=== PATIENT | male | born 1935 | race Caucasian/White ===

== ENCOUNTER 2016-07-05 09:30 | Emergency (ER) | payer OTHER ==
[2016-07-05] MEDS ORDERED: Silver Nitrate Applicator Each TOP ONE (10:05)
[2016-07-05 10:14] VITALS: BP 142/76
--- NOTE | 2016-07-05 10:15 | EDM.PDOC ---
ED HPI ENT - General Stated Complaint: BLOODY NOSE Time Seen by Provider: 07/05/16 10:00 Source of Information: Reports: Patient History Limitations: Reports: No limitations - History of Present Illness INITIAL COMMENTS - FREE TEXT/NARRATIVE: STarted bleeding from the left nostril about midnight. He could get it to stop for awhile and then it would start again. Puts pressure on it. Has had this happen in the past where it happened and he stopped his baby ASA and it went away. No trauma to the area. Not having any pain at this time. Symptom Onset Date: 07/05/16 Symptom Onset Time: 00:00 Timing/Duration: Reports: Intermittent Location: Reports: left nares Worsens with: Reports: Movement Associated Symptoms: Denies: headaches - Related Data Allergies/ADRs: Allergies Allergy/AdvReac Type Severity Reaction Status Date / Time No Known Allergies Allergy Verified 07/05/16 09:48 Home Meds: Home Meds Isosorbide Mononitrate [Imdur] 30 mg PO DAILY 06/06/13 [History] Latanoprost [Xalatan 0.005% Ophth Soln] 2.5 ml OP DAILY 06/06/13 [History] Lisinopril 10 mg PO DAILY 06/06/13 [History] Metoprolol Tartrate 25 mg PO BID 06/06/13 [History] Nitroglycerin 0.4 mg SL DAILY PRN 06/06/13 [History] Omeprazole 20 mg PO BID 06/06/13 [History] Rosuvastatin [Crestor] 20 mg PO BEDTIME 06/06/13 [History] Tamsulosin [Flomax] 0.4 mg PO BEDTIME 06/06/13 [History] Acetaminophen [Tylenol] 325 mg PO DAILY PRN 10/23/14 [History] Alfuzosin HCl [Alfuzosin HCl ER] 10 mg PO DAILY 10/23/14 [History] Clopidogrel [Plavix] 75 mg PO DAILY 10/23/14 [History] Oxybutynin 5 mg PO DAILY 10/23/14 [History] Sennosides/Docusate Sodium [Stool Softener] 1 tab PO DAILY PRN 10/23/14 [History ] traMADol HCl [Tramadol HCl] 50 mg PO Q6H PRN 10/23/14 [History] Past Medical History Cardiovascular History: Reports: High cholesterol, Hypertension Respiratory History: Reports: None Gastrointestinal History: Reports: GERD Genitourinary History: Reports: BPH Musculoskeletal History: Reports: Osteoarthritis Neurological History: Reports: CVA Endocrine/Metabolic History: Reports: Other (see below) Other Endocrine/Metabolic History: glucose intolerance Social & Family History - Tobacco Use Smoking Status *Q: Never Smoker Years of Tobacco use: 39 Used Tobacco, but Quit: Yes Month Tobacco Last Used: unsure Second Hand Smoke Exposure: No - Alcohol Use Days Per Week of Alcohol Use: 0 - Recreational Drug Use Recreational Drug Use: No - Living Situation & Occupation Living situation: Reports: Occupation: retired ED ROS ENT - Review of Systems Review Of Systems: See Below Constitutional: Denies: fever, chills HEENT: Reports: Nosebleed. Denies: Nose pain Respiratory: Denies: Shortness of Breath, Cough Cardiovascular: Denies: Chest pain GI/Abdominal: Reports: No symptoms Skin: Reports: no symptoms Neurological: Reports: No Symptoms Hematologic/Lymphatic: Denies: easy bleeding, easy bruising ED EXAM, ENT - Physical Exam Exam: See Below Exam Limited By: No limitations General Appearance: alert, WD/WN, no apparent distress Ears: normal external exam, normal TMs Nose: active bleeding (to the left septum noted.). No: nasal deformity, foreign body Mouth/Throat: Normal inspection, Normal oropharynx Head: atraumatic, normocephalic Neck: normal inspection, supple, non-tender Respiratory/Chest: no respiratory distress, lungs clear Cardiovascular: normal peripheral pulses, regular rate, rhythm GI/Abdominal: normal bowel sounds, soft Neurological: alert Skin: Warm, Dry, Intact ED ENT PROCEDURES - Epistaxis Procedure Indication: epistaxis, uncontrolled Recent anticoagulants/antiplatlets: Yes Uncontrolled HTN: No Recent septal/nasal surgery: No Site of bleeding: left nare Chemical cautery: silver nitrate topical Complications: No Course - Vital Signs Last Recorded V/S: Last Vital Signs Temp 98.0 F 07/05/16 09:40 Pulse 65 07/05/16 09:40 Resp 20 07/05/16 09:40 BP Pulse Ox 95 07/05/16 09:40 - Orders/Labs/Meds Orders: Active Orders 24 hr Category Date Time Status BMP [BASIC METABOLIC PANEL,BMP] [CHEM] Stat Lab 07/05/16 09:51 Ordered Labs: Laboratory Tests 07/05/16 Range/Units 09:51 WBC 6.2 (5.0-10.0) 10^3/uL RBC 4.13 L (4.50-6.00) 10^6/uL Hgb 12.9 L (14.0-18.0) g/dL Hct 38.2 L (40.0-54.0) % MCV 92.5 (82.0-94.0) fL MCH 31.2 (27.0-32.0) pg MCHC 33.8 (33.0-38.0) g/dL RDW Coeff of Erica 13.1 (11.0-15.0) % Plt Count 196 (150-400) 10^3/uL Neut % (Auto) 64.6 (35-85) % Lymph % (Auto) 22.8 (10-55) % Tucker % (Auto) 10.6 (0-16) % Eos % (Auto) 1.8 (0-5) % Baso % (Auto) 0.2 (0-3) % Neut # (Auto) 4.04 (1.80-7.00) 10^3/uL Lymph # (Auto) 1.42 (1.00-4.80) 10^3/uL Tucker # (Auto) 0.66 (0.00-0.80) 10^3/uL Eos # (Auto) 0.11 (0.00-0.45) 10^3/uL Baso # (Auto) 0.01 10^3/uL Departure - Departure Time of Disposition: 10:26 Disposition: Home, Self-Care 01 Condition: good Clinical Impression: Epistaxis Additional Instructions: Do not blow nose or rub on it Try to avoid bending or lifting for the next 24 hours Recheck if any new concerns noted. - Problem List & Annotations (1) Epistaxis SNOMED Code(s): 54286146, 428026325 Code(s): R04.0 - EPISTAXIS Status: Acute Priority: High - Problem List Review Problem List Initiated/Reviewed/Updated: Yes - My Orders Last 24 Hours: My Active Orders 07/05/16 09:51 BMP [BASIC METABOLIC PANEL,BMP] [CHEM] Stat - Assessment/Plan Last 24 Hours: My Active Orders 07/05/16 09:51 BMP [BASIC METABOLIC PANEL,BMP] [CHEM] Stat
== END 2016-07-05 10:35 | disposition home or self-care (01) ==
LOC: CC.ED 09:30
DX: R04.0 Epistaxis (principal); E78.00 Pure hypercholesterolemia, unspecified; I10 Essential (primary) hypertension; K21.9 Gastro-esophageal reflux disease without esophagitis; M19.90 Unspecified osteoarthritis, unspecified site; Z86.73 Personal history of transient ischemic attack (TIA), and cerebral infarction without residual deficits; Z79.899 Other long term (current) drug therapy
CPT/HCPCS: 30901; 36415; 80048; 85025; 99282; 99283

== ENCOUNTER 2016-07-16 08:26 | Emergency (ER) | payer OTHER ==
[2016-07-16 08:37] VITALS: BP 159/86
--- NOTE | 2016-07-16 09:01 | EDM.PDOC ---
ED HPI GENERAL MEDICAL PROBLEM - General Chief Complaint: General Stated Complaint: bloody nose yesterday Time Seen by Provider: 07/16/16 08:45 Source of Information: Reports: Patient History Limitations: Reports: No limitations - History of Present Illness INITIAL COMMENTS - FREE TEXT/NARRATIVE: Yariel is an 81 yo male who presents to the ER to have his nose cauterized. States he had a nose bleed yesterday and it did stop after a couple of minutes. He admits he came to the ER a few weeks ago and had it cauterized during an active nose bleed. Was doing fine up until yesterday. Hasn't had any nose bleeds since getting it to stop this morning. He denies any other symptoms. He isn't sure what is causing it but admits he does have high blood pressure. States he thought it was well controlled with the medication. [facility]. Duration: Resolved prior to arrival - Related Data Allergies Allergy/AdvReac Type Severity Reaction Status Date / Time No Known Allergies Allergy Verified 07/05/16 09:48 Home Meds: Home Meds Isosorbide Mononitrate [Imdur] 60 mg PO DAILY 06/06/13 [History] Latanoprost [Xalatan 0.005% Ophth Soln] 2.5 ml OP DAILY 06/06/13 [History] Lisinopril 2.5 mg PO DAILY 06/06/13 [History] Metoprolol Tartrate 25 mg PO BID 06/06/13 [History] Nitroglycerin 0.4 mg SL DAILY PRN 06/06/13 [History] Omeprazole 20 mg PO BID 06/06/13 [History] Rosuvastatin [Crestor] 20 mg PO BEDTIME 06/06/13 [History] Acetaminophen [Tylenol] 325 mg PO DAILY PRN 10/23/14 [History] Alfuzosin HCl [Alfuzosin HCl ER] 10 mg PO DAILY 10/23/14 [History] Clopidogrel [Plavix] 75 mg PO DAILY 10/23/14 [History] Sennosides/Docusate Sodium [Stool Softener] 1 tab PO DAILY PRN 10/23/14 [History ] traMADol HCl [Tramadol HCl] 50 mg PO Q6H PRN 10/23/14 [History] Meloxicam 15 mg PO DAILY 07/05/16 [History] Sodium Chloride [Saline Nasal [place]] 2 spray NS TID PRN 07/05/16 [History] Past Medical History HEENT History: Reports: Impaired vision Cardiovascular History: Reports: High cholesterol, Hypertension Respiratory History: Reports: None Gastrointestinal History: Reports: GERD Genitourinary History: Reports: BPH Musculoskeletal History: Reports: Osteoarthritis Neurological History: Reports: CVA Endocrine/Metabolic History: Reports: Other (see below) Other Endocrine/Metabolic History: glucose intolerance Social & Family History - Tobacco Use Smoking Status *Q: Never Smoker Years of Tobacco use: 39 Used Tobacco, but Quit: Yes Month Tobacco Last Used: unsure Second Hand Smoke Exposure: No - Caffeine Use Caffeine Use: Reports: Coffee - Alcohol Use Days Per Week of Alcohol Use: 0 - Recreational Drug Use Recreational Drug Use: No - Living Situation & Occupation Living situation: Reports: Occupation: retired ED ROS GENERAL - Review of Systems Review Of Systems: See Below Constitutional: Denies: fever, chills HEENT: Reports: Nosebleed (resolved yesterday). Denies: Eye pain, Nose pain, Vision change Respiratory: Reports: No Symptoms. Denies: Shortness of Breath, Cough Cardiovascular: Reports: No symptoms. Denies: Chest pain, Blood pressure problem, Palpitations GI/Abdominal: Reports: No symptoms ED EXAM, GENERAL - Physical Exam Exam: See Below Exam Limited By: No limitations (sitting comfortably in chair, having normal conversation) General Appearance: alert, no apparent distress Ears: normal external exam, normal canal, hearing grossly normal, normal TMs Nose: no blood, other (mild excoriation to left kiesselbach's plexus). No: nasal tenderness, nasal deformity, nasal swelling Throat/Mouth: Normal inspection, Normal lips, Normal teeth, Normal gums, Normal oropharynx, No airway compromise Head: atraumatic, normocephalic Neck: normal inspection, supple Respiratory/Chest: no respiratory distress, lungs clear, normal breath sounds Cardiovascular: regular rate, rhythm, no murmur Neurological: alert, oriented, normal cognition, no motor/sensory deficits Psychiatric: normal affect, normal mood Skin Exam: Warm, Dry, Intact Course - Vital Signs Last Recorded V/S: Last Vital Signs Temp 97.8 F 07/16/16 08:30 Pulse 63 07/16/16 08:30 Resp 20 07/16/16 08:30 BP 159/86 H 07/16/16 08:30 Pulse Ox 95 07/16/16 08:30 Departure - Departure Time of Disposition: 09:01 Disposition: Home, Self-Care 01 Clinical Impression: Hx of epistaxis, Elevated blood pressure reading with diagnosis of hypertension Instructions: Nosebleed, [id number] Forms: ED Department Discharge Additional Instructions: 1) Will have home health get blood pressure readings 2-3 times a week to make sure blood pressure isn't always mildly elevated. 2) Encourage refraining from using sea salt in nose, advise using a moisturizer spray. May get at pharmacy 3) If bleeding returns or any concerns at all, please let us know. 4) Otherwise, follow up with primary provider to discuss recurrent nose bleeds. - Problem List & Annotations (1) Elevated blood pressure reading with diagnosis of hypertension SNOMED Code(s): 61445154, 52183697 Code(s): I10 - ESSENTIAL (PRIMARY) HYPERTENSION Status: Acute Current Visit: Yes (2) Hx of epistaxis SNOMED Code(s): 776588869 Code(s): Z87.898 - PERSONAL HISTORY OF OTHER SPECIFIED CONDITIONS Status: Acute Current Visit: Yes - Problem List Review Problem List Initiated/Reviewed/Updated: Yes - Assessment/Plan Plan: Will discharge home without any further treatment. Will get a log of blood pressure reading moving forward. Discussed recurrent epistaxis and cauterizing. Advised against cauterizing today as it appears to be healing well. Recommend refraining from using sea salt in nose. Advise only using a moisturizing spray. Follow up with primary in 2 weeks.
== END 2016-07-16 09:10 | disposition home or self-care (01) ==
LOC: CC.ED 08:26
DX: I10 Essential (primary) hypertension (principal); K21.9 Gastro-esophageal reflux disease without esophagitis; M19.90 Unspecified osteoarthritis, unspecified site; E78.00 Pure hypercholesterolemia, unspecified; Z87.898 Personal history of other specified conditions; Z79.899 Other long term (current) drug therapy
CPT/HCPCS: 99282

== ENCOUNTER 2016-07-27 10:06 | Emergency (ER) | payer OTHER ==
[2016-07-27 10:18] VITALS: BP 160/83
--- NOTE | 2016-07-27 10:30 | EDM.PDOC ---
ED HPI GENERAL MEDICAL PROBLEM - General Chief Complaint: ENT Problem Stated Complaint: NOSE BLEED Time Seen by Provider: 07/27/16 10:18 Source of Information: Reports: Patient History Limitations: Reports: No Limitations - History of Present Illness INITIAL COMMENTS - FREE TEXT/NARRATIVE: Has been getting recurrent nose bleeds for several weeks. Had last one at 0630 this morning. It only lasted a few minutes. Had one yesterday also. Has been having them every couple of days. Has been trying saline nasal spray and then was told that would make it worse so started using vaseline. Continues to get them so came to ER to try to get them to stop permanently. No bleeding at this time. Always bleeds from the left side. Location: Reports: Other (nose) Severity: Mild - Related Data Allergies Allergy/AdvReac Type Severity Reaction Status Date / Time No Known Allergies Allergy Verified 07/27/16 10:11 Home Meds: Home Meds Isosorbide Mononitrate [Imdur] 60 mg PO DAILY 06/06/13 [History] Latanoprost [Xalatan 0.005% Ophth Soln] 2.5 ml OP DAILY 06/06/13 [History] Lisinopril 2.5 mg PO DAILY 06/06/13 [History] Metoprolol Tartrate 25 mg PO BID 06/06/13 [History] Nitroglycerin 0.4 mg SL DAILY PRN 06/06/13 [History] Omeprazole 20 mg PO BID 06/06/13 [History] Rosuvastatin [Crestor] 20 mg PO BEDTIME 06/06/13 [History] Acetaminophen [Tylenol] 325 mg PO DAILY PRN 10/23/14 [History] Alfuzosin HCl [Alfuzosin HCl ER] 10 mg PO DAILY 10/23/14 [History] Clopidogrel [Plavix] 75 mg PO DAILY 10/23/14 [History] Sennosides/Docusate Sodium [Stool Softener] 1 tab PO DAILY PRN 10/23/14 [History ] traMADol HCl [Tramadol HCl] 50 mg PO Q6H PRN 10/23/14 [History] Meloxicam 15 mg PO DAILY 07/05/16 [History] Sodium Chloride [Saline Nasal [place]] 2 spray NS TID PRN 07/05/16 [History] Past Medical History HEENT History: Reports: Impaired Vision, Other (See Below) Other HEENT History: nose bleeds Cardiovascular History: Reports: High Cholesterol, Hypertension Respiratory History: Reports: None Gastrointestinal History: Reports: GERD Genitourinary History: Reports: BPH Musculoskeletal History: Reports: Osteoarthritis Neurological History: Reports: CVA Endocrine/Metabolic History: Reports: Other (See Below) Other Endocrine/Metabolic History: glucose intolerance Social & Family History - Tobacco Use Smoking Status *Q: Former Smoker Years of Tobacco use: 39 Used Tobacco, but Quit: Yes Month Tobacco Last Used: 30 years ago Second Hand Smoke Exposure: No - Caffeine Use Caffeine Use: Reports: Coffee - Alcohol Use Days Per Week of Alcohol Use: 0 - Recreational Drug Use Recreational Drug Use: No - Living Situation & Occupation Living situation: Reports: Occupation: Retired ED ROS ENT - Review of Systems Review Of Systems: See Below Constitutional: Reports: No Symptoms HEENT: Reports: Nosebleed Respiratory: Reports: No Symptoms Cardiovascular: Reports: No Symptoms GI/Abdominal: Reports: No Symptoms ED EXAM, ENT - Physical Exam Exam: See Below Exam Limited By: No Limitations General Appearance: Alert, WD/WN, No Apparent Distress Ears: Normal External Exam, Normal Canal Nose: Dried Blood (left nostril. No actve bleeding noted.). No: Active Bleeding Mouth/Throat: Normal Inspection Neck: Normal Inspection, Supple Course - Vital Signs Last Recorded V/S: Last Vital Signs Temp 97.7 F 07/27/16 10:15 Pulse 60 07/27/16 10:15 Resp 18 07/27/16 10:15 BP 160/83 H 07/27/16 10:15 Pulse Ox 94 L 07/27/16 10:15 Departure - Departure Time of Disposition: 10:31 Disposition: Home, Self-Care 01 Condition: good Clinical Impression: Epistaxis - Discharge Information Forms: ED Department Discharge Additional Instructions: appointment with Dr. Roberson August 15 at 1:15 in the clinic in [place] If nosebleed reoccurs before that hold pressure as you have been until bleeding stops
== END 2016-07-27 10:40 | disposition home or self-care (01) ==
LOC: CC.ED 10:06
DX: R04.0 Epistaxis (principal); I10 Essential (primary) hypertension; E78.00 Pure hypercholesterolemia, unspecified; K21.9 Gastro-esophageal reflux disease without esophagitis; M19.90 Unspecified osteoarthritis, unspecified site; Z86.73 Personal history of transient ischemic attack (TIA), and cerebral infarction without residual deficits; Z79.899 Other long term (current) drug therapy; Z87.891 Personal history of nicotine dependence
CPT/HCPCS: 99282

== ENCOUNTER 2017-05-04 00:57 | Emergency (ER) | payer OTHER ==
--- NOTE | 2017-05-04 01:22 | EDM.PDOC ---
ED HPI GENERAL MEDICAL PROBLEM - General Chief Complaint: Gastrointestinal Problem Stated Complaint: constipation Time Seen by Provider: 05/04/17 01:02 Source of Information: Reports: Patient History Limitations: Reports: No Limitations - History of Present Illness INITIAL COMMENTS - FREE TEXT/NARRATIVE: This patient is an 81 year old male that presents to the ER. Patient arrives via EMS. Patent reports that he has not had a good BM for 1 week. Patient reports the last four days he has had several small BMs that have been hard. Patient reports having gas. Patient reports that he has a history of constipation and takes a medication on a regular basis for it. He reports that he also takes Miralax, but has not been taking often. He does report he took it tonight at 8pm without success. The patient denies cancino, dizziness, n, v, d, f, cp , soa, abd pain, urinary changes. Patient reports "I'm just constipated and having trouble going." Patient reports he has not been seen in clinic or by a PCP this week for his constipation. Patient reports that his ability to pass gas has become less and less the last couple of days and his ability to have a BM is less as well. I have reviewed patient hx, he has hx of bowel obstruction. 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 Abdominal Pain Score (Numeric/FACES): 4 - Related Data Allergies Allergy/AdvReac Type Severity Reaction Status Date / Time No Known Allergies Allergy Verified 05/04/17 01:10 Home Meds: Home Meds Isosorbide Mononitrate [Imdur] 60 mg PO DAILY 06/06/13 [History] Lisinopril 2.5 mg PO DAILY 06/06/13 [History] Metoprolol Tartrate 12.5 mg PO BID 06/06/13 [History] Nitroglycerin 0.4 mg SL DAILY PRN 06/06/13 [History] Omeprazole 40 mg PO BID 06/06/13 [History] Rosuvastatin [Crestor] 20 mg PO BEDTIME 06/06/13 [History] Alfuzosin HCl [Alfuzosin HCl ER] 10 mg PO DAILY 10/23/14 [History] Clopidogrel [Plavix] 75 mg PO DAILY 10/23/14 [History] Sennosides/Docusate Sodium [Stool Softener] 2 tab PO BID 10/23/14 [History] Meloxicam 15 mg PO DAILY 07/05/16 [History] Sodium Chloride [Saline Nasal [place]] 2 spray NS TID 07/05/16 [History] Fish Oil/[place]-3 Fatty Acids [Fish Oil 1,000 MG] 1 each PO BID 05/04/17 [History ] Polyethylene Glycol 3350 [MiraLAX] 17 gm PO DAILY PRN 05/04/17 [History] Past Medical History HEENT History: Reports: Impaired Vision, Other (See Below) Other HEENT History: nose bleeds Cardiovascular History: Reports: High Cholesterol, Hypertension Respiratory History: Reports: None Gastrointestinal History: Reports: GERD Genitourinary History: Reports: BPH Musculoskeletal History: Reports: Osteoarthritis Neurological History: Reports: CVA Endocrine/Metabolic History: Reports: Other (See Below) Other Endocrine/Metabolic History: glucose intolerance Social & Family History - Tobacco Use Smoking Status *Q: Former Smoker Years of Tobacco use: 39 Used Tobacco, but Quit: Yes Month Tobacco Last Used: 30 years ago Second Hand Smoke Exposure: No - Caffeine Use Caffeine Use: Reports: Coffee - Alcohol Use Days Per Week of Alcohol Use: 0 - Recreational Drug Use Recreational Drug Use: No - Living Situation & Occupation Living situation: Reports: Occupation: Retired ED ROS GENERAL - Review of Systems Review Of Systems: See Below Constitutional: Reports: No Symptoms HEENT: Reports: No Symptoms Respiratory: Reports: No Symptoms Cardiovascular: Reports: No Symptoms Endocrine: Reports: No Symptoms GI/Abdominal: Reports: Constipation, Distension, Flatus. Denies: Abdominal Pain , Anorexia, Black Stool, Bloody Stool, Diarrhea, Decreased Appetite, Difficulty Swallowing, Hematemesis, Hematochezia, Mucous in Stool, Nausea, Stool Incontinence, Vomiting : Reports: No Symptoms Musculoskeletal: Reports: No Symptoms Skin: Reports: No Symptoms Neurological: Reports: No Symptoms Psychiatric: Reports: No Symptoms Hematologic/Lymphatic: Reports: No Symptoms Immunologic: Reports: No Symptoms ED EXAM, GI/ABD - Physical Exam Exam: See Below Exam Limited By: No Limitations General Appearance: Alert, WD/WN, No Apparent Distress Eyes: Bilateral: Normal Appearance Ears: Normal External Exam, Normal Canal, Hearing Grossly Normal, Normal TMs Nose: Normal Inspection, Normal Mucosa, No Blood Throat/Mouth: Normal Inspection, Normal Lips, Normal Teeth, Normal Gums, Normal Oropharynx, Normal Voice, No Airway Compromise Head: Atraumatic, Normocephalic Neck: Normal Inspection, Supple, Non-Tender, Full Range of Motion Respiratory/Chest: No Respiratory Distress, Lungs Clear, Normal Breath Sounds, No Accessory Muscle Use Cardiovascular: Normal Peripheral Pulses, Regular Rate, Rhythm, No Edema, No Gallop, No JVD, No Murmur, No Rub GI/Abdominal Exam: Normal Bowel Sounds, Distended, Hernia, Other (old surgical scar). No: Guarding, Rigid, Rebound, Tender, Hepatomegaly, Splenomegaly (Male) Exam: Deferred Rectal (Males) Exam: Deferred Back Exam: Normal Inspection, Full Range of Motion. No: CVA Tenderness (L), CVA Tenderness (R) Extremities: Normal Inspection, Normal Range of Motion, Non-Tender, No Pedal Edema, Normal Capillary Refill Neurological: Alert, Oriented, Normal Cognition, No Motor/Sensory Deficits Psychiatric: Normal Affect, Normal Mood Skin Exam: Warm, Dry, Intact, Normal Color, No Rash Lymphatic: No Adenopathy Course - Vital Signs Last Recorded V/S: Last Vital Signs Temp 97.2 F 05/04/17 03:38 Pulse 82 05/04/17 03:38 Resp 16 05/04/17 03:38 BP 149/84 H 05/04/17 03:38 Pulse Ox 94 L 05/04/17 03:38 - Orders/Labs/Meds Orders: Active Orders 24 hr Category Date Time Status Abdomen Pelvis w Cont [CT] Stat Exams 05/04/17 01:52 Taken LACTIC ACID [CHEM] Stat Lab 05/04/17 03:20 Ordered Labs: Laboratory Tests 05/04/17 05/04/17 05/04/17 Range/Units 01:16 01:16 01:46 WBC 13.0 H (5.0-10.0) 10^3/uL RBC 4.36 L (4.50-6.00) 10^6/uL Hgb 14.1 (14.0-18.0) g/dL Hct 40.9 (40.0-54.0) % MCV 93.8 (82.0-94.0) fL MCH 32.3 H (27.0-32.0) pg MCHC 34.5 (33.0-38.0) g/dL RDW Coeff of Erica 13.6 (11.0-15.0) % Plt Count 176 (150-400) 10^3/uL Neut % (Auto) 80.1 (35-85) % Lymph % (Auto) 10.1 (10-55) % [place] % (Auto) 8.9 (0-16) % Eos % (Auto) 0.8 (0-5) % Baso % (Auto) 0.1 (0-3) % Neut # (Auto) 10.39 H (1.80-7.00) 10^3/uL Lymph # (Auto) 1.31 (1.00-4.80) 10^3/uL [place] # (Auto) 1.15 H (0.00-0.80) 10^3/uL Eos # (Auto) 0.10 (0.00-0.45) 10^3/uL Baso # (Auto) 0.01 10^3/uL Sodium 141 (136-145) mEq/L Potassium 3.9 (3.5-5.0) mEq/L Chloride 105 (98-106) mEq/L Carbon Dioxide 27 (21-32) mmol/L BUN 29 H (7-18) mg/dL Creatinine 1.3 (0.7-1.3) mg/dL Est Cr Clr Drug Dosing 43.05 mL/min Estimated GFR (MDRD) 53 L (>=60) mL/min Glucose 124 H (75-99) mg/dL Calcium 9.2 (8.4-10.1) mg/dL Total Bilirubin 0.4 (0.0-1.0) mg/dL AST 17 (15-37) U/L ALT 13 (12-78) U/L Alkaline Phosphatase 82 (46-116) U/L C-Reactive Protein (0.2-0.8) mg/dL Total Protein 7.2 (6.4-8.2) g/dL Albumin 3.6 (3.4-5.0) g/dL Amylase 40 (25-115) U/L Urine Color Dark yellow (YELLOW) Urine Appearance Clear (CLEAR) Urine pH 5.0 (4.5-8.0) Ur Specific [place] 1.025 H (1.003-1.020) Urine Protein Negative (NEGATIVE) mg/dL Urine Glucose (UA) Negative (NEGATIVE) mg/dL Urine Ketones Trace H (NEGATIVE) mg/dL Urine Occult Blood Negative (NEGATIVE) Urine Nitrite Negative (NEGATIVE) Urine Bilirubin Negative (NEGATIVE) Urine Urobilinogen 0.2 (0.2-1.0) EU/dL Ur Leukocyte Esterase Negative (NEGATIVE) Urine RBC Not seen (0-5) /HPF Urine WBC Not seen (0-5) /HPF 05/04/17 Range/Units 03:20 WBC (5.0-10.0) 10^3/uL RBC (4.50-6.00) 10^6/uL Hgb (14.0-18.0) g/dL Hct (40.0-54.0) % MCV (82.0-94.0) fL MCH (27.0-32.0) pg MCHC (33.0-38.0) g/dL RDW Coeff of Erica (11.0-15.0) % Plt Count (150-400) 10^3/uL Neut % (Auto) (35-85) % Lymph % (Auto) (10-55) % [place] % (Auto) (0-16) % Eos % (Auto) (0-5) % Baso % (Auto) (0-3) % Neut # (Auto) (1.80-7.00) 10^3/uL Lymph # (Auto) (1.00-4.80) 10^3/uL [place] # (Auto) (0.00-0.80) 10^3/uL Eos # (Auto) (0.00-0.45) 10^3/uL Baso # (Auto) 10^3/uL Sodium (136-145) mEq/L Potassium (3.5-5.0) mEq/L Chloride (98-106) mEq/L Carbon Dioxide (21-32) mmol/L BUN (7-18) mg/dL Creatinine (0.7-1.3) mg/dL Est Cr Clr Drug Dosing mL/min Estimated GFR (MDRD) (>=60) mL/min Glucose (75-99) mg/dL Calcium (8.4-10.1) mg/dL Total Bilirubin (0.0-1.0) mg/dL AST (15-37) U/L ALT (12-78) U/L Alkaline Phosphatase (46-116) U/L C-Reactive Protein 1.7 H (0.2-0.8) mg/dL Total Protein (6.4-8.2) g/dL Albumin (3.4-5.0) g/dL Amylase (25-115) U/L Urine Color (YELLOW) Urine Appearance (CLEAR) Urine pH (4.5-8.0) Ur Specific [place] (1.003-1.020) Urine Protein (NEGATIVE) mg/dL Urine Glucose (UA) (NEGATIVE) mg/dL Urine Ketones (NEGATIVE) mg/dL Urine Occult Blood (NEGATIVE) Urine Nitrite (NEGATIVE) Urine Bilirubin (NEGATIVE) Urine Urobilinogen (0.2-1.0) EU/dL Ur Leukocyte Esterase (NEGATIVE) Urine RBC (0-5) /HPF Urine WBC (0-5) /HPF Meds: Medications Discontinued Medications Generic Name Dose Route Start Last Admin Trade Name Freq PRN Reason Stop Dose Admin Sodium Chloride 1,000 mls @ 1,000 mls/hr 05/04/17 01:53 05/04/17 02:22 Normal Saline IV 05/04/17 02:52 1,000 mls/hr .BOLUS ONE Administration Iopamidol 100 ml 05/04/17 01:54 05/04/17 02:13 Isovue-300 (61%) IVPUSH 05/04/17 01:55 100 ml ONETIME ONE Administration - Re-Assessments/Exams Free Text/Narrative Re-Assessment/Exam: 05/04/17 03:26 This patient is being transferred to [facility]. I have called and spoke with Dr. Washington hospitalist about this patient. She has accepted the patient. She would like a lactic acid and CRP drawn on this patient prior to him leaving our facility. Will transfer. 05/04/17 04:08 Patient reports his pain is right now a 0/10 pain scale. Departure - Departure Time of Disposition: 03:32 Disposition: DC/Tfer to Acute Hospital 02 Condition: Fair Clinical Impression: Small bowel obstruction - Discharge Information Referrals: Provider,Unknown [Primary Care Provider] - Forms: ED Department Discharge - My Orders Last 24 Hours: My Active Orders 05/04/17 01:52 Abdomen Pelvis w Cont [CT] Stat 05/04/17 03:20 LACTIC ACID [CHEM] Stat - Assessment/Plan Last 24 Hours: My Active Orders 05/04/17 01:52 Abdomen Pelvis w Cont [CT] Stat 05/04/17 03:20 LACTIC ACID [CHEM] Stat Plan: PLEASE SEE RN NOTE FOR PFSH. The patient is being transferred to [facility]. The risks of the transfer are MVC, , worsening of obstruction, cardiac arrest. The benefits of transfer are higher level of care, surgeon consult, GI specialist if needed. The risks of staying in [place] are , worsening of obstruction, no surgical intervention if needed, no surgeon consult. The benefits of staying in [place] are close to home.
[2017-05-04] MEDS ORDERED: Sodium Chloride 0.9% 1,000 ML IV ONE (01:53)
[2017-05-04] MEDS ORDERED: Iopamidol 612 MG/ML 100 ML Bottle IVPUSH ONE (01:54)
[2017-05-04 03:39] VITALS: BP 149/84
== END 2017-05-04 04:13 ==
LOC: CC.ED 00:57
DX: K56.609 Unspecified intestinal obstruction, unspecified as to partial versus complete obstruction (principal); I10 Essential (primary) hypertension; E78.00 Pure hypercholesterolemia, unspecified; Z79.899 Other long term (current) drug therapy; Z87.891 Personal history of nicotine dependence
CPT/HCPCS: 36415; 74177; 80053; 81001; 82150; 83605; 85025; 86140; 96365; 99285; J7030; Q9967